=== PATIENT | female | born 1990 | race Caucasian/White ===

== ENCOUNTER 2017-01-01 05:20 | Inpatient (IN) | payer OTHER ==
[2017-01-01] VITALS (20 sets, daily range): BP systolic 118–152; BP diastolic 60–78; PULSE 67–93; RESP 17–37; Ht 160 cm; Wt 130.0 kg
[~2017-01-01] VITALS: Ht 160 cm; Wt 130.0 kg
--- NOTE | 2017-01-01 07:21 | HPN ---
Date/Time of Note Date/Time of Note DATE: 01/01/17 TIME: 07:20 Interval H&P Admission Note Pt. seen H&P reviewed: No system changes EDIL TORRES MD Jan 01, 2017 07:21
[2017-01-01] MEDS ORDERED: PROPOFOL 20 ML ONE ×2 (07:32→09:15)
[2017-01-01] MEDS ORDERED: SUCCINYLCHOLINE CHLORIDE 100 MG/5 ML SYG IV ONE (07:32)
[2017-01-01] MEDS ORDERED: ROCURONIUM 50 MG INJ ONE ×2 (07:32→09:15)
[2017-01-01] MEDS ORDERED: MIDAZOLAM 1 MG/ML 2 ML INJ ONE (07:32)
[2017-01-01] MEDS ORDERED: CEFAZOLIN 1 GM INJ ONE (07:32)
[2017-01-01] MEDS ORDERED: morphine SULFATE/PF (10 MG/10 ML) INJ ONE (07:32)
[2017-01-01] MEDS ORDERED: FENTAnyl 50 MCG/ML VIAL ONE (07:32)
[2017-01-01] MEDS ORDERED: ONDANSETRON 4 MG INJ ONE (09:14)
[2017-01-01] MEDS ORDERED: DEXAMETHASONE 4 MG/ML 1 ML INJ ONE (09:15)
[2017-01-01] MEDS ORDERED: METOCLOPRAMIDE 10 MG INJ ONE (09:15)
[2017-01-01] MEDS ORDERED: KETOROLAC 30 MG INJ ONE (09:15)
[2017-01-01] MEDS ORDERED: SUGAMMADEX SODIUM 200 MG/2 ML VIAL IV ONE (09:23)
[2017-01-01] MEDS ORDERED: MEPERIDINE 25 MG INJ IV PRN ×2 (09:30→19:30)
[2017-01-01] MEDS ORDERED: DIPHENHYDRAMINE 50 MG INJ IV PRN ×4 (09:30→19:30)
[2017-01-01] MEDS ORDERED: LABETALOL HCL 20MG INJ IV PRN ×2 (09:30→19:30)
[2017-01-01] MEDS ORDERED: morphine (1 MG/ML) 10ML SYRINGE IV PRN ×6 (09:30→19:30)
[2017-01-01] MEDS ORDERED: EPHEDrine SULFATE 50 MG/5 ML SYG IV PRN ×2 (09:30→19:30)
[2017-01-01] MEDS ORDERED: NALBUPHINE HCL (10 MG/1 ML) INJ IV PRN ×2 (09:30→19:30)
[2017-01-01] MEDS ORDERED: hydrALAzine 20 MG INJ IV PRN ×2 (09:30→19:30)
[2017-01-01] MEDS ORDERED: FENTAnyl 50 MCG/ML VIAL IV PRN ×6 (09:30→19:30)
[2017-01-01] MEDS ORDERED: NALOXONE (0.4 MG/ML) INJ IV PRN ×2 (09:30→19:30)
[2017-01-01] MEDS ORDERED: METOCLOPRAMIDE 10 MG INJ IV PRN ×2 (09:30→19:30)
[2017-01-01] MEDS ORDERED: ONDANSETRON 4 MG INJ IV PRN ×2 (09:30→19:30)
--- NOTE | 2017-01-01 09:39 | SIPON ---
Date/Time of Note Date/Time of Note DATE: 01/01/17 TIME: 09:36 Operative Report Preoperative Diagnosis midline abdominal mass Postoperative Diagnosis left large paratubal cyst Operation/Procedure Performed exp lap left paratubal cystectomy Surgeon see signature line community relations assistant reiche Anesthesia: general, spinal Estimated blood loss: 0 - 10 ml's Transfusion Required none Specimen left paratubal cyst with cystic content Grafts/Implants none Complications none EDIL TORRES MD Jan 01, 2017 09:39
--- NOTE | 2017-01-01 11:18 | OPR ---
DATE OF OPERATION: 01/01/2017 PREOPERATIVE DIAGNOSIS: Abdominal mass. POSTOPERATIVE DIAGNOSIS: Left paratubal cyst. OPERATIVE PROCEDURE: 1. Exploratory laparotomy. 2. Left paratubal cystectomy. SURGEON: Valentine Walker MD CAKE PRESS OPERATOR: Coy Amin MD ESTIMATED BLOOD LOSS: Less than 10 mL. ANESTHESIA: Spinal for the postop pain management and general. ANESTHESIOLOGIST: . PROCEDURE: Under appropriate induction of spinal anesthesia and general anesthesia, patient was placed in the frog leg position. Rojas catheter was introduced into the bladder under sterile conditions and repositioned to supine. Abdomen was prepped and draped in usual aseptic manner. A Pfannenstiel incision was made and the incision was carried down through the subcutaneous tissue to the anterior rectus fascia, which was incised transversely in length of the incision. Encounter bleeder was controlled with electrocautery. The facial flap was created by blunt and sharp dissection of tendinous attachment upwards and downward and the 2 rectus muscles split in the midline. Peritoneal cavity was entered. The patient was placed in Trendelenburg position and pelvic organ was explored. There was cystic anteriorly above the uterus and it was felt distally and seems to the left side ovary was normal and the tube was felt. Most likely this cyst originated from the left tube. Right tube and ovary was also felt, which was felt to be normal size and consistency. After the further exploration, the cystic mass was extremely large to deliver out through the operative incision because of size is approximately, longest diameter is 15 cm in length and it is kind of ovular shaped. The cyst wall we can see, which was very thin walled with clear fluid seen through the cyst wall. At this point, we decided to drain the cystic content in order to reduce the size to deliver out through the small incision. The 22-gauge needle was introduced into the cystic content and drained the 10 mL, which was sent for the cytology exam and decided to suck it out because the content is a large amount, which was sucked out using the suction tip into the ovarian cyst. It drained approximately 500 mL of the clear fluid. After the drain this cyst was able to be delivered out through the incision and the cyst was enucleated from the adjacent tissue, which is the mesosalphinx. No excessive bleeding noted. At the based of the cyst, there was a little bit of oozing, which was controlled with a 2-0 chromic with a GI needle in continuous manner. The defect was closed with 2-0 chromic in continuous manner on the mesosalpinx, which had the defect from the paraovarian cyst removed. No bleeding noted. A piece of Interceed was sewn on the mesosalpinx for prevention of the adhesion. Procedure was ended on the left paratubal area and the bleeder controlled properly. Sponge count and instrument count correct. The parietal peritoneum was closed using 0 chromic catgut in continuous manner. The muscle closed with 0 chromic catgut in continuous manner. Fascia closed with number 1 Vicryl in continuous manner in 2 segments. Subcutaneous tissue approximated with 2-0 plain gut. Skin closed with the Insorb and Steri-Strips were applied. Pressure dressing applied. Estimated blood loss less than 10 mL. The patient withstood the procedure and was sent to the recovery room in stable condition. Dictated By: Valentine Walker MD /[email or web address]/ben /Document#: [id number]
[2017-01-01] MEDS: SOD CHLORIDE 0.45% 1,000 ML IV SCH ×3 (11:55→22:01)
[2017-01-01] MEDS: IBUPROFEN 800 MG TAB PO SCH ×2 (12:00→18:16)
[2017-01-02] MEDS: IBUPROFEN 800 MG TAB PO SCH ×5 (00:30→23:40)
[2017-01-02 00:51] VITALS: BP 135/70; RESP 20
[2017-01-02 05:00] VITALS: BP 126/69; PULSE 74; RESP 18
[2017-01-02 08:00] VITALS: BP 128/76; RESP 20
[2017-01-02] MEDS: OXYCODONE/ACETAMINOPHEN (5/325) TAB PO PRN ×2 (09:08→16:12)
[2017-01-02] MEDS: SOD CHLORIDE 0.45% 1,000 ML IV SCH (09:10)
[2017-01-02 14:00] VITALS: BP 161/38; RESP 18
--- NOTE | 2017-01-02 20:59 | PD.PPDC ---
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 Diagnosis Final Diagnosis: left paratubal cyst Condition Patient Condition: Stable Diet Diet: Resume Regular Diet Activity/Restrictions Activity: May Shower Restrictions: No Exercising No Lifting Minimize Stair-climbing No Sexual Activity Nothing in the Vagina No Norris No Tampons, douche Follow-up Follow-up with Physician: 2, Week/Weeks Return to clinic for HEAD OF ICT Instructions: Fever greater than 101 Chills Worsening abdominal pain Excessive Vaginal Bleeding More than 2 pads per hour Unable to tolerate diet Surgical Instructions: Incisional Drainage Incisional Redness EDIL TORRES MD Jan 02, 2017 20:58
--- NOTE | 2017-01-02 21:04 | DS ---
Date/Time of Note Date/Time of Note DATE: 01/02/17 TIME: 21:00 Discharge Summary Admission/Discharge Info Admit Date/Time Jan 01, 2017 at 05:20 Discharge Date/Time 01/03/17 1200 Discharge Diagnosis left paratubal cyst Patient Condition: Stable Consults none Procedures explolatory laparotomy left paraovarian cystectiomy Hx of Present Illness c/o pelvic pain u/s shows large cystic mass in the middle o abdomen underwent exp lap cystectomy doing well Hospital Course same as above Home Meds Discontinued Reported Medications [None] No Conflict Check 10/10/09 Primary Care Provider Javier Schultz Time spent on discharge: < 30 minutes EDIL TORRES MD Jan 02, 2017 21:04
[2017-01-02 21:12] VITALS: BP 143/77; RESP 20
[2017-01-03] MEDS: SOD CHLORIDE 0.45% 1,000 ML IV SCH ×2 (02:00→11:38)
[2017-01-03 02:39] VITALS: BP 140/72; RESP 18
[2017-01-03] MEDS: IBUPROFEN 800 MG TAB PO SCH ×2 (05:45→11:43)
[2017-01-03] MEDS: OXYCODONE/ACETAMINOPHEN (5/325) TAB PO PRN (08:12)
[2017-01-03 08:19] VITALS: BP 142/68; RESP 15
== END 2017-01-03 12:10 | disposition home or self-care (01) | DRG 742 ==
LOC: REC 05:20 → MS1 11:00
PROVIDERS: ADMIT Obstetrics & Gynecology; ATTEND Obstetrics & Gynecology
PROC: 0UB60ZZ Excision of Left Fallopian Tube, Open Approach (ICD-10-PCS; principal; 2017-01-01 07:30)
DX: N83.8 Other noninflammatory disorders of ovary, fallopian tube and broad ligament (principal); Z68.43 Body mass index [BMI] 50.0-59.9, adult; E66.01 Morbid (severe) obesity due to excess calories
CPT/HCPCS: 84703; 86850; 86900; 86901; 86920; 87086; 88104; 88304; J0690; J1100; J1200; J1885; J2250; J2274; J2405; J2765; J3010; J7999